=== PATIENT | male | born 1995 | race Two or more races ===

== ENCOUNTER 2020-10-16 18:03 | Emergency (ER) | payer MEDICAID ==
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
== END 2020-10-16 19:26 | disposition home or self-care (01) ==
LOC: DL.ED 18:03
CPT/HCPCS: 99282; 99283